=== PATIENT | male | born 1955 | race African-American/Black ===

== ENCOUNTER 2017-03-21 23:36 | Emergency (ER) | payer MEDICAID ==
[~2017-03-21] VITALS: Ht 182.9 cm; Wt 98.0 kg
[2017-03-22] MEDS ORDERED: KETOROLAC 30MG/ML VIAL IV STA (00:56)
[2017-03-22 01:22] LABS: BASOPHILS % 0.5 % (0.0-2.0); EOSINOPHILS % 1.7 % (0.0-5.0); HEMATOCRIT. 37.3 % (42.0-52.0); HEMOGLOBIN. 12.9 g/dL (14.0-18.0); MEAN CORPUSCULAR HEMOGLOBIN 30.9 pg (28.0-32.0); MEAN CORPUSCULAR VOLUME 89.3 fL (80.0-94.0); MEAN PLATELET VOLUME 7.6 fl (7.4-10.4); MONOCYTES % 12.6 % (2.0-8.0); NEUTROPHILS % 44.2 % (40.0-76.0); PLATELET 218 x1000/uL (130-400); RED BLOOD CELL COUNT 4.18 mill/uL (4.7-6.1); RED CELL DISTRIBUTION WIDTH 12.8 % (11.6-14.6)
[2017-03-22 01:24] LABS: CHLORIDE 101 mEq/L (98-107)
[2017-03-22 01:32] LABS: CARBON DIOXIDE 29 mEq/L (21-32)
[2017-03-22 03:03] LABS: CLARITY URINE CLEAR (CLEAR); COLOR URINE YELLOW (YELLOW); GLUCOSE URINE 3+ (NEGATIVE); KETONES URINE NEGATIVE (NEGATIVE); LEUKOCYTE ESTERASE URINE NEGATIVE (NEGATIVE); NITRITE URINE NEGATIVE (NEGATIVE); OCCULT BLOOD URINE NEGATIVE (NEGATIVE); PH URINE 5.5 (4.5-8.0); PROTEIN URINE TRACE (NEGATIVE); SPECIFIC GRAVITY URINE 1.034 (1.005-1.030)
[2017-03-22 04:00] VITALS: BP 100/64
== END 2017-03-22 05:20 | disposition home or self-care (01) ==
LOC: ER 23:36
DX: M25.552 Pain in left hip (principal); I10 Essential (primary) hypertension; E78.00 Pure hypercholesterolemia, unspecified; E11.9 Type 2 diabetes mellitus without complications
CPT/HCPCS: 36415; 72170; 80053; 81001; 85025; 96374; 99285; J1885; Z7610

== ENCOUNTER 2017-10-25 19:11 | Emergency (ER) | payer MEDICAID ==
[~2017-10-25] VITALS: Ht 175.3 cm; Wt 96.2 kg
[2017-10-25 19:23] VITALS: BP 169/91
== END 2017-10-25 23:00 | disposition left against medical advice (07) ==
LOC: ER 19:11
DX: Z53.21 Procedure and treatment not carried out due to patient leaving prior to being seen by health care provider (principal)

== ENCOUNTER 2018-11-25 17:03 | Inpatient (IN) | payer MEDICAID ==
[~2018-11-25] VITALS: Ht 175.3 cm; Wt 87.5 kg
[2018-11-25 17:54] LABS: CHLORIDE 103 mEq/L (98-107)
[2018-11-25 17:55] LABS: BASOPHILS % 1.1 % (0.0-2.0); EOSINOPHILS % 1.1 % (0.0-5.0); HEMATOCRIT. 34.9 % (42.0-52.0); HEMOGLOBIN. 12.1 g/dL (14.0-18.0); INR 1.1; LYMPHOCYTES % 26.9 % (20.0-50.0); MEAN CORPUSCULAR HEMOGLOBIN 31.6 pg (28.0-32.0); MEAN PLATELET VOLUME 7.1 fl (7.4-10.4); NEUTROPHILS % 59.9 % (40.0-76.0); PLATELET 259 x1000/uL (130-400); PROTHROMBIN TIME 11.4 sec (9.6-11.0); RED BLOOD CELL COUNT 3.83 mill/uL (4.7-6.1); RED CELL DISTRIBUTION WIDTH 13.1 % (11.6-14.6)
[2018-11-25 17:58] LABS: ETHANOL BLOOD < 10 mg/dL
[2018-11-25 18:01] LABS: LDL CHOLESTEROL 74 mg/dL (5-100)
[2018-11-25] MEDS ORDERED: IOHEXOL-350 100 ML BOTTLE ONE (18:13)
[2018-11-25 19:52] LABS: CLARITY URINE CLEAR (CLEAR); COLOR URINE YELLOW (YELLOW); KETONES URINE NEGATIVE (NEGATIVE); LEUKOCYTE ESTERASE URINE NEGATIVE (NEGATIVE); NITRITE URINE NEGATIVE (NEGATIVE); OCCULT BLOOD URINE NEGATIVE (NEGATIVE); PROTEIN URINE 2+ (NEGATIVE); SPECIFIC GRAVITY URINE 1.056 (1.005-1.030)
[2018-11-25 20:02] LABS: *AMPHETAMINES SCREEN URINE NEGATIVE (NEGATIVE); *BARBITURATES SCREEN URINE NEGATIVE (NEGATIVE); *BENZODIAZEPINES SCREEN URINE NEGATIVE (NEGATIVE); *COCAINE SCREEN URINE NEGATIVE (NEGATIVE); METHADONE URINE SCREEN NEGATIVE (NEGATIVE); OPIATES URINE SCREEN NEGATIVE (NEGATIVE)
[2018-11-25 20:03] LABS: CANNABINOID URINE SCREEN NEGATIVE (NEGATIVE); PHENCYCLIDINE URINE SCREEN NEGATIVE (NEGATIVE)
[2018-11-25] MEDS ORDERED: SODIUM CHLORIDE 0.9% 1,000 ML IV ONE (22:45)
[2018-11-26 03:16] VITALS: BP 133/76
[2018-11-26] MEDS ORDERED: METF-416 PO (04:51)
[2018-11-26] MEDS ORDERED: GLI (04:51)
[2018-11-26] MEDS ORDERED: glipizide (04:57)
[2018-11-26] MEDS ORDERED: ACETAMINOPHEN 325MG TABLET PO PRN (05:30)
[2018-11-26] MEDS ORDERED: CLONIDINE 0.1MG TABLET PO PRN (05:30)
[2018-11-26] MEDS ORDERED: DEXTROSE 50% WATER 50ML SYRINGE IV PRN (05:30)
[2018-11-26] MEDS ORDERED: statin (05:47)
[2018-11-26] MEDS: BLOOD SUGAR DIAGNOSTIC STRIP TEST SCH ×4 (06:02→20:33)
[2018-11-26] MEDS: PANTOPRAZOLE 40MG DR TABLET PO SCH (06:02)
[2018-11-26] MEDS: INSULIN LISPRO 100 UNITS/ML SUBCUT SCH ×4 (07:50→20:34)
[2018-11-26 08:00] VITALS: BP 135/62
[2018-11-26 12:00] VITALS: BP 114/61
[2018-11-26] MEDS ORDERED: [UNRECOGNIZED DRUG - OTHER] XX SCH (13:15)
[2018-11-26] MEDS ORDERED: LEVE1000 MT (14:28)
[2018-11-26] MEDS ORDERED: GLIP10TA10 MT (14:28)
[2018-11-26] MEDS ORDERED: VANCOMYCIN 1500MG in DEXTROSE 5% WATER 250ML IV SCH (15:00)
[2018-11-26] MEDS: SODIUM CHLORIDE 0.45% 1,000 ML IV SCH (15:36)
[2018-11-26] MEDS: CEFEPIME 1,000 MG in DEXTROSE 5% WATER 50 ML IV SCH ×2 (15:36→23:42)
[2018-11-26] MEDS ORDERED: GADOBENATE DIMEGLUMINE 529 MG/ML 10ML IV ONE (15:45)
[2018-11-26 16:00] VITALS: BP 124/77
[2018-11-26 16:23] LABS: CHLORIDE 104 mEq/L (98-107)
[2018-11-26] MEDS ORDERED: DIPHENHYDRAMINE 50MG/ML VIAL IV PRN (16:30)
[2018-11-26] MEDS ORDERED: HYDROCODONE/ACETAMINOPHEN 5/325MG TABLET PO PRN (16:30)
[2018-11-26] MEDS ORDERED: HYDRALAZINE 20MG/ML VIAL IV PRN (16:30)
[2018-11-26 20:00] VITALS: BP 126/66
[2018-11-26] MEDS: LEVETIRACETAM 500 MG in SODIUM CHLORIDE 0.9% 100 ML IV SCH (20:56)
[2018-11-27] VITALS (8 sets, daily range): BP systolic 121–173; BP diastolic 67–83
[2018-11-27] MEDS ORDERED: VANCOMYCIN 1250MG in DEXTROSE 5% WATER 250ML IV SCH (05:00)
[2018-11-27] MEDS: PANTOPRAZOLE 40MG DR TABLET PO SCH (06:21)
[2018-11-27] MEDS: BLOOD SUGAR DIAGNOSTIC STRIP TEST SCH ×4 (06:21→21:47)
[2018-11-27 07:14] LABS: HEMATOCRIT 35.7 % (42.0-52.0); HEMOGLOBIN 12.2 g/dL (14.0-18.0); MEAN CORPUSCULAR VOLUME 90.7 fL (80.0-94.0); PLATELET 259 x1000/uL (130-400); RED BLOOD CELL COUNT 3.93 mill/uL (4.7-6.1); RED CELL DISTRIBUTION WIDTH 12.7 % (11.6-14.6)
[2018-11-27 07:19] LABS: CHLORIDE 104 mEq/L (98-107)
[2018-11-27 07:32] LABS: LDL CHOLESTEROL 85 mg/dL (5-100)
[2018-11-27 07:34] LABS: HDL CHOLESTEROL 28 mg/dL (40-59); T4 FREE 1.12 ng/dL (0.76-1.46)
[2018-11-27] MEDS: CEFEPIME 1,000 MG in DEXTROSE 5% WATER 50 ML IV SCH ×2 (08:53→21:21)
[2018-11-27] MEDS: INSULIN LISPRO 100 UNITS/ML SUBCUT SCH ×4 (08:53→21:00)
[2018-11-27] MEDS: LEVETIRACETAM 500 MG in SODIUM CHLORIDE 0.9% 100 ML IV SCH ×2 (09:23→21:00)
[2018-11-27] MEDS: SODIUM CHLORIDE 0.45% 1,000 ML IV SCH (10:21)
[2018-11-27] MEDS: GABAPENTIN 100MG CAPSULE PO SCH ×2 (15:21→18:37)
[2018-11-27] MEDS: VANCOMYCIN 1250MG in DEXTROSE 5% WATER 250ML IV SCH (18:38)
[2018-11-27] MEDS: FAMOTIDINE 20MG TABLET PO SCH (22:07)
[2018-11-28 03:55] VITALS: BP 145/78
[2018-11-28] MEDS: BLOOD SUGAR DIAGNOSTIC STRIP TEST SCH (06:59)
[2018-11-28] MEDS: VANCOMYCIN 1250MG in DEXTROSE 5% WATER 250ML IV SCH (06:59)
[2018-11-28 08:00] VITALS: BP 112/61
[2018-11-28] MEDS: GABAPENTIN 100MG CAPSULE PO SCH (08:58)
[2018-11-28] MEDS: CEFEPIME 1,000 MG in DEXTROSE 5% WATER 50 ML IV SCH (08:59)
[2018-11-28] MEDS: FAMOTIDINE 20MG TABLET PO SCH (08:59)
[2018-11-28] MEDS: SODIUM CHLORIDE 0.45% 1,000 ML IV SCH (09:02)
[2018-11-28 09:20] LABS: HEMATOCRIT 38.4 % (42.0-52.0); HEMOGLOBIN 13.2 g/dL (14.0-18.0); MEAN CORPUSCULAR HEMOGLOBIN 31.1 pg (28.0-32.0); MEAN CORPUSCULAR VOLUME 90.2 fL (80.0-94.0); PLATELET 271 x1000/uL (130-400); RED BLOOD CELL COUNT 4.26 mill/uL (4.7-6.1); RED CELL DISTRIBUTION WIDTH 12.7 % (11.6-14.6)
[2018-11-28 09:27] LABS: CHLORIDE 103 mEq/L (98-107)
[2018-11-28] MEDS: INSULIN LISPRO 100 UNITS/ML SUBCUT SCH (09:27)
[2018-11-28] MEDS: LEVETIRACETAM 500 MG in SODIUM CHLORIDE 0.9% 100 ML IV SCH (10:03)
== END 2018-11-28 12:10 | disposition home or self-care (01) | DRG 721 ==
LOC: ER 17:03 → 6WST 23:34 → EDBEDREQTM 23:46 → EDBEDREQ 23:46 → EDBEDREQSVC 23:46 → ENRESERV 11-26 01:34
PROVIDERS: ADMIT Internal Medicine; ATTEND Internal Medicine
DX: T81.40XA Infection following a procedure, unspecified, initial encounter (principal); G06.2 Extradural and subdural abscess, unspecified; I62.03 Nontraumatic chronic subdural hemorrhage; G03.9 Meningitis, unspecified; G90.8 Other disorders of autonomic nervous system; E11.40 Type 2 diabetes mellitus with diabetic neuropathy, unspecified; E11.65 Type 2 diabetes mellitus with hyperglycemia; G45.9 Transient cerebral ischemic attack, unspecified; G93.89 Other specified disorders of brain; D64.9 Anemia, unspecified; D72.819 Decreased white blood cell count, unspecified; G40.909 Epilepsy, unspecified, not intractable, without status epilepticus; I10 Essential (primary) hypertension; R00.1 Bradycardia, unspecified; R47.81 Slurred speech; Y83.8 Other surgical procedures as the cause of abnormal reaction of the patient, or of later complication, without mention of misadventure at the time of the procedure; Z86.73 Personal history of transient ischemic attack (TIA), and cerebral infarction without residual deficits; Y92.89 Other specified places as the place of occurrence of the external cause
CPT/HCPCS: 36415; 70496; 70498; 70551; 70552; 71045; 80048; 80061; 80202; 80305; 80320; 82542; 82962; 83036; 83721; 84145; 84439; 84443; 84484; 85027; 85651; 93005; 93306; 93970; 96360; 96372; 97162; 99285; A9577; J0692; J1815; J1953; J3370; J7050; J7060; Q9967; G0480

== ENCOUNTER 2018-12-17 16:12 | Emergency (ER) | payer MEDICAID ==
[~2018-12-17] VITALS: Ht 180.3 cm; Wt 89.5 kg
[~2018-12-17 16:12] MED LIST: GLIP10TA10 MT; LEVE1000 MT; METF-416 PO
[2018-12-17] MEDS ORDERED: GABA-529 PO (16:30)
[2018-12-17 17:20] VITALS: BP 150/85
== END 2018-12-17 17:25 | disposition home or self-care (01) ==
LOC: ER 16:12
DX: E11.42 Type 2 diabetes mellitus with diabetic polyneuropathy (principal); I10 Essential (primary) hypertension; G40.909 Epilepsy, unspecified, not intractable, without status epilepticus; Z86.73 Personal history of transient ischemic attack (TIA), and cerebral infarction without residual deficits; Z79.84 Long term (current) use of oral hypoglycemic drugs
CPT/HCPCS: 82962; 99283

== ENCOUNTER 2018-12-20 15:48 | Emergency (ER) | payer MEDICAID ==
[~2018-12-20] VITALS: Ht 182.9 cm; Wt 90.0 kg
[~2018-12-20 15:48] MED LIST changes: +GABA-529 PO
[2018-12-20] MEDS ORDERED: OXYCODONE HCL/ACETAMINOPHEN 5/325MG TABLET PO ONE (16:45)
[2018-12-20 17:10] LABS: BASOPHILS % 0.8 % (0.0-2.0); EOSINOPHILS % 1.4 % (0.0-5.0); HEMATOCRIT. 39.1 % (42.0-52.0); HEMOGLOBIN. 13.5 g/dL (14.0-18.0); LYMPHOCYTES % 32.9 % (20.0-50.0); MEAN CORPUSCULAR HEMOGLOBIN 31.5 pg (28.0-32.0); MEAN CORPUSCULAR VOLUME 91.3 fL (80.0-94.0); NEUTROPHILS % 53.9 % (40.0-76.0); RED BLOOD CELL COUNT 4.28 mill/uL (4.7-6.1); RED CELL DISTRIBUTION WIDTH 13.4 % (11.6-14.6)
[2018-12-20 17:16] LABS: INR 1.1
[2018-12-20 17:20] LABS: CHLORIDE 107 mEq/L (98-107)
[2018-12-20 17:40] LABS: PLATELET 200 x1000/uL (130-400)
[2018-12-20 17:41] LABS: MEAN PLATELET VOLUME 8.1 fl (7.4-10.4)
[2018-12-20 18:36] VITALS: BP 138/88
== END 2018-12-20 18:40 | disposition home or self-care (01) ==
LOC: ER 15:48
DX: G62.9 Polyneuropathy, unspecified (principal); E11.9 Type 2 diabetes mellitus without complications; E78.00 Pure hypercholesterolemia, unspecified; I10 Essential (primary) hypertension; Z98.890 Other specified postprocedural states; Z79.899 Other long term (current) drug therapy
CPT/HCPCS: 36415; 99284

== ENCOUNTER 2018-12-22 17:11 | Emergency (ER) | payer MEDICAID ==
[~2018-12-22] VITALS: Ht 180.3 cm; Wt 91.0 kg
[2018-12-23 01:53] VITALS: BP 138/72
== END 2018-12-23 01:58 | disposition home or self-care (01) ==
LOC: ER 17:11
DX: R20.0 Anesthesia of skin (principal); E11.9 Type 2 diabetes mellitus without complications; E78.00 Pure hypercholesterolemia, unspecified; I10 Essential (primary) hypertension; Z98.890 Other specified postprocedural states
CPT/HCPCS: 93971; 99284

== ENCOUNTER 2019-01-03 17:35 | Emergency (ER) | payer MEDICAID ==
[~2019-01-03] VITALS: Ht 175.3 cm; Wt 91.0 kg
[2019-01-03 18:56] LABS: CHLORIDE 106 mEq/L (98-107)
[2019-01-03 18:59] LABS: BASOPHILS % 0.5 % (0.0-2.0); EOSINOPHILS % 1.4 % (0.0-5.0); HEMOGLOBIN. 13.4 g/dL (14.0-18.0); LYMPHOCYTES % 42.2 % (20.0-50.0); MEAN CORPUSCULAR HEMOGLOBIN 30.7 pg (28.0-32.0); MEAN CORPUSCULAR VOLUME 91.3 fL (80.0-94.0); MEAN PLATELET VOLUME 7.8 fl (7.4-10.4); MONOCYTES % 13.3 % (2.0-8.0); NEUTROPHILS % 42.6 % (40.0-76.0); PLATELET 232 x1000/uL (130-400); RED BLOOD CELL COUNT 4.38 mill/uL (4.7-6.1); RED CELL DISTRIBUTION WIDTH 13.1 % (11.6-14.6)
[2019-01-03 21:56] VITALS: BP 141/92
== END 2019-01-03 21:57 | disposition home or self-care (01) ==
LOC: ER 17:35
DX: G62.9 Polyneuropathy, unspecified (principal); R20.0 Anesthesia of skin; G40.909 Epilepsy, unspecified, not intractable, without status epilepticus; E11.9 Type 2 diabetes mellitus without complications; I10 Essential (primary) hypertension; Z98.890 Other specified postprocedural states; Z79.84 Long term (current) use of oral hypoglycemic drugs
CPT/HCPCS: 36415; 71045; 82962; 83880; 84484; 93005; 99284

== ENCOUNTER 2020-09-22 14:53 | Emergency (ER) | payer MEDICAID ==
[~2020-09-22] VITALS: Ht 182.9 cm; Wt 88.0 kg
[2020-09-22] MEDS ORDERED: ASPIRIN 81MG TABLET PO ONE (16:15)
[2020-09-22 16:29] LABS: BASOPHILS % 0.6 % (0.0-2.0); EOSINOPHILS % 0.9 % (0.0-5.0); HEMATOCRIT. 40.1 % (42.0-52.0); HEMOGLOBIN. 13.7 g/dL (14.0-18.0); LYMPHOCYTES % 29.8 % (20.0-50.0); MEAN CORPUSCULAR HEMOGLOBIN 31.1 pg (28.0-32.0); MEAN CORPUSCULAR VOLUME 91.1 fL (80.0-94.0); MEAN PLATELET VOLUME 7.6 fl (7.4-10.4); NEUTROPHILS % 56.7 % (40.0-76.0); PLATELET 197 x1000/uL (130-400); RED BLOOD CELL COUNT 4.41 mill/uL (4.7-6.1); RED CELL DISTRIBUTION WIDTH 13.4 % (11.6-14.6)
[2020-09-22 16:43] LABS: CHLORIDE 107 mEq/L (98-107)
[2020-09-22 20:48] VITALS: BP 142/72
== END 2020-09-22 21:36 | disposition home or self-care (01) ==
LOC: ER 14:53
DX: R07.89 Other chest pain (principal); E11.9 Type 2 diabetes mellitus without complications; I10 Essential (primary) hypertension; E78.00 Pure hypercholesterolemia, unspecified; Z98.890 Other specified postprocedural states; Z79.84 Long term (current) use of oral hypoglycemic drugs
CPT/HCPCS: 36415; 71045; 80053; 83880; 84484; 85025; 93005; 99285; Z7610

== ENCOUNTER 2020-11-04 23:37 | Emergency (ER) | payer MEDICAID ==
[~2020-11-04] VITALS: Ht 182.9 cm; Wt 86.0 kg
[2020-11-05] MEDS ORDERED: MAGNESIUM/ALUMINUM HYDROXIDE/SIMETHICONE 30ML UDC PO ONE
[2020-11-05] MEDS ORDERED: VISCOUS LIDOCAINE 2% 15 ML UDC PO ONE
[2020-11-05] MEDS ORDERED: ASPIRIN 81MG TABLET PO ONE
[2020-11-05] MEDS ORDERED: NITROGLYCERIN 0.4MG TABLET SL SL PRN
[2020-11-05 00:16] LABS: BASOPHILS % 0.8 % (0.0-2.0); EOSINOPHILS % 1.5 % (0.0-5.0); HEMATOCRIT. 43.3 % (42.0-52.0); HEMOGLOBIN. 14.4 g/dL (14.0-18.0); LYMPHOCYTES % 34.9 % (20.0-50.0); MEAN PLATELET VOLUME 7.9 fl (7.4-10.4); MONOCYTES % 11.1 % (2.0-8.0); NEUTROPHILS % 51.7 % (40.0-76.0); PLATELET 210 x1000/uL (130-400); RED BLOOD CELL COUNT 4.65 mill/uL (4.7-6.1); RED CELL DISTRIBUTION WIDTH 13.2 % (11.6-14.6)
[2020-11-05 00:22] LABS: CHLORIDE 107 mEq/L (98-107)
[2020-11-05 03:16] VITALS: BP 131/68
== END 2020-11-05 03:17 | disposition home or self-care (01) ==
LOC: ER 23:37
DX: R07.89 Other chest pain (principal); K21.9 Gastro-esophageal reflux disease without esophagitis; E11.9 Type 2 diabetes mellitus without complications; I10 Essential (primary) hypertension; E78.00 Pure hypercholesterolemia, unspecified; Z86.19 Personal history of other infectious and parasitic diseases; Z98.890 Other specified postprocedural states; Z79.84 Long term (current) use of oral hypoglycemic drugs
CPT/HCPCS: 36415; 71045; 80053; 83880; 84484; 85025; 93005; 99285; Z7610